=== PATIENT | female | born 1985 | race Caucasian/White ===

== ENCOUNTER 2016-09-23 20:43 | Emergency (ER) | payer MEDICARE ==
[~2016-09-23] VITALS: Ht 165.1 cm; Wt 142.9 kg
[2016-09-23 22:00] VITALS: BP 136/84
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
[2016-09-23] MEDS ORDERED: NEOMY/BACITR/POLYMYXIN OINT PACKET. TP ONE (22:30)
--- NOTE | 2016-09-24 06:45 | EKG ---
[facility] [address] [place] [address] Test Date: 2016-09-23 Test Time: 21:45:44 Pat Name: SUSANA JACKSON Department: Room: Gender: F Back Joiner: : 1985 Requested By: ULI EMMANUEL Order Number: [id number] Reading MD: Erik Jeffries Measurements Intervals [place] Rate: 80 P: 31 VT: 170 QRS: -7 QRSD: 86 T: 43 QT: 384 QTc: 447 Interpretive Statements SINUS RHYTHM LEFTWARD AXIS RI6.01 Unconfirmed report No previous ECG available for comparison Electronically Signed On 09-24-2016 14:16:08 STRAINER TENDER by Erik Jeffries
== END 2016-09-23 22:25 | disposition home or self-care (01) ==
LOC: ER 20:43
DX: S51.812A Laceration without foreign body of left forearm, initial encounter (principal); S51.811A Laceration without foreign body of right forearm, initial encounter; F32.9 Major depressive disorder, single episode, unspecified; F25.9 Schizoaffective disorder, unspecified; E28.2 Polycystic ovarian syndrome; F41.9 Anxiety disorder, unspecified; F17.200 Nicotine dependence, unspecified, uncomplicated; F90.9 Attention-deficit hyperactivity disorder, unspecified type; Z90.49 Acquired absence of other specified parts of digestive tract; Z88.8 Allergy status to other drugs, medicaments and biological substances; X78.8XXA Intentional self-harm by other sharp object, initial encounter; Y93.89 Activity, other specified; Y92.89 Other specified places as the place of occurrence of the external cause; Y99.8 Other external cause status
CPT/HCPCS: 93005; 99283-25